=== PATIENT | female | born 1980 | race Caucasian/White ===

== ENCOUNTER → 2019-02-08 | Outpatient (CLI) | payer BC ==
--- NOTE | 2019-02-08 14:05 | MM ---
Reason for exam: screening (asymptomatic). History: Taking hormonal contraceptives for 4 years. Physical Findings: Nurse did not find any significant physical abnormalities on exam. MG 3D Screening Mammo W/Cad Bilateral CC and MLO view(s) were taken. The breast tissue is heterogeneously dense. This may lower the sensitivity of mammography. There is no discrete abnormality. These results were verbally communicated with the patient and result sheet given to the patient on 02/08/19. ASSESSMENT: Negative, BI-RAD 1 RECOMMENDATION: Routine screening mammogram of both breasts in 1 year.
== END ==
LOC: RADMAMWWP 12:46
PROVIDERS: ATTEND Family Medicine
DX: Z12.31 Encounter for screening mammogram for malignant neoplasm of breast (principal)
CPT/HCPCS: 77063; 77067

== ENCOUNTER → 2020-05-28 | Outpatient (CLI) | payer BC ==
--- NOTE | 2020-05-28 10:13 | CT ---
EXAMINATION TYPE: CT sinus wo con DATE OF EXAM: 05/28/2020 COMPARISON: NONE HISTORY: Chronic sinusitis per order. Nasal dryness for [address] DLP: 593.60 mGycm. Automated Exposure Control for Dose Reduction was Utilized. TECHNIQUE: CT scan of the sinuses is performed without contrast, axial images are obtained, coronal r eformatted images are also reviewed. FINDINGS: There is hypoplastic or nonformed right frontal sinus. Otherwise the paranasal sinuses incl uding the frontal, ethmoid, sphenoid, and maxillary sinuses bilaterally are well-aerated without abno rmal opacification. The ostiomeatal complex is patent bilaterally on coronal image 15. Visualized portion of mastoid air cells show no abnormal opacification. The globes are intact bilate rally. IMPRESSION: The sinuses are clear and the ostiomeatal complex is patent bilaterally.
== END | disposition home or self-care (01) ==
LOC: RADCTMAIN 08:09
PROVIDERS: ATTEND Family Medicine
DX: J32.9 Chronic sinusitis, unspecified (principal)
CPT/HCPCS: 70486

== ENCOUNTER → 2021-08-28 | Outpatient (CLI) | payer BC ==
--- NOTE | 2021-08-31 13:27 | MM ---
Reason for exam: screening (asymptomatic). Last mammogram was performed 2 years and 7 months ago. History: Taking hormonal contraceptives for 4 years. Physical Findings: A clinical breast exam by your physician is recommended on an annual basis and results should be correlated with mammographic findings. MG Screening Mammo w CAD Bilateral CC and MLO view(s) were taken. Prior study comparison: February 08, 2019, bilateral MG 3d screening mammo w/cad. The breast tissue is heterogeneously dense. This may lower the sensitivity of mammography. No significant changes when compared with prior studies. ASSESSMENT: Negative, BI-RAD 1 RECOMMENDATION: Routine screening mammogram of both breasts in 1 year.
== END | disposition home or self-care (01) ==
LOC: RADMAMWWP 10:52
PROVIDERS: ATTEND Obstetrics & Gynecology Obstetrics
DX: Z12.31 Encounter for screening mammogram for malignant neoplasm of breast (principal)
CPT/HCPCS: 77067

== ENCOUNTER → 2023-02-10 | Outpatient (CLI) | payer BC ==
--- NOTE | 2023-02-11 08:53 | MM ---
Reason for Exam: Screening (asymptomatic). Last mammogram was performed 1 year(s) and 5 month(s) ago. Patient History: Menarche at age 10. First Full-Term at age 16. Perimenopausal. Currently using Hormonal Contraceptives, for 4 years. Last menstrual period: 02/10/2023 Risk Values: Ingrid 5 year model risk: 0.6%. NCI Lifetime model risk: 7.0%. Prior Study Comparison: 02/08/2019 Bilateral Screening Mammogram, [facility]. 08/28/2021 Bilateral Screening Mammogram, [facility]. Tissue Density: The breast tissue is heterogeneously dense. This may lower the sensitivity of mammography. Findings: Analyzed By CAD. There is no suspicious group of microcalcifications or new suspicious mass in either breast. Benign calcifications noted. Overall Assessment: Benign, BI-RAD 2 Management: Screening Mammogram of both breasts in 1 year. . Patient should continue monthly self-breast exams. A clinical breast exam by your physician is recommended on an annual basis. This exam should not preclude additional follow-up of suspicious palpable abnormalities. Note on Ingrid scores and lifetime risk: 1. A Ingrid score greater than 3% is considered moderate risk. If this is the case, consider specialist referral to assess eligibility for a risk reducing agent. 2. If overall lifetime risk for the development of breast cancer is 20% or higher, the patient may qualify for future screening with alternating mammogram and breast MRI. Electronically signed and approved by: Diaz Zapata M.D. Radiologis
--- NOTE | 2023-02-11 11:33 | CA ---
Transthoracic Echo Report Name: Joanie Kidd Age: 43 Gender: F : 1980 Exam Date: 02/10/2023 14:11 Exam Location: [facility] Ht (in): 65 Wt (lb): 153 Ordering Physician: Marcella Gary DO Attending/Referring Phys: Kyra Marquez [facility] [employer] Physics Instructor Diana Horn RDCS Procedure CPT: Indications: Z12.31 Cardiac Hx: Technical Quality: Good Contrast 1: Total Dose (mL): Contrast 2: Total Dose (mL): MEASUREMENTS (Male / Female) Normal Values 2D ECHO LV Diastolic Diameter PLAX 5.1 cm 4.2 - 5.9 / 3.9 - 5.3 cm LV Systolic Diameter PLAX 2.9 cm IVS Diastolic Thickness 1.0 cm 0.6 - 1.0 / 0.6 - 0.9 cm LVPW Diastolic Thickness 0.9 cm 0.6 - 1.0 / 0.6 - 0.9 cm LV Relative Wall Thickness 0.4 RV Internal Dim ED PLAX 2.9 cm LA Systolic Diameter LX 3.3 cm 3.0 - 4.0 / 2.7 - 3.8 cm LV Diastolic Volume MOD 4C 85.5 cm??? LV Systolic Volume MOD 4C 30.3 cm??? LV Ejection Fraction MOD 4C 64.5 % LV Cardiac Index MOD 4C 2026.7 cm???/min???m??? LV Diastolic Length 4C 7.9 cm LV Systolic Length 4C 5.9 cm LV Diastolic Volume MOD 2C 73.5 cm??? LV Systolic Volume MOD 2C 32.6 cm??? LV Ejection Fraction MOD 2C 55.6 % LV Cardiac Index MOD 2C 1502.0 cm???/min???m??? LV Diastolic Length 2C 8.1 cm LV Systolic Length 2C 5.9 cm LA Volume 49.9 cm??? 18 - 58 / 22 - 52 cm??? M-MODE Aortic Root Diameter MM 2.7 cm MV E Point Septal Separation 0.5 cm AV Cusp Separation MM 2.0 cm DOPPLER AV Peak Velocity 149.1 cm/s AV Peak Gradient 8.9 mmHg MV Area PHT 3.3 cm??? Mitral E Point Velocity 122.5 cm/s Mitral A Point Velocity 76.6 cm/s Mitral E to A Ratio 1.6 MV Deceleration Time 228.9 ms TR Peak Velocity 219.4 cm/s TR Peak Gradient 19.3 mmHg Right Ventricular Systolic Press 23.5 mmHg FINDINGS Left Ventricle Left ventricular ejection fraction is estimated at 55-60 %. Left ventricular cavity size normal. Left ventricular wall thickness normal. Right Ventricle Normal right ventricular size and function. Right ventricular systolic pressure within normal limits. Right Atrium Normal right atrial size. Left Atrium Normal left atrial size. Mitral Valve Structurally normal mitral valve. Mitral valve thickened. No mitral stenosis, regurgitation or prolapse. Aortic Valve Trileaflet aortic valve. No aortic valve stenosis or regurgitation. Tricuspid Valve Structurally normal tricuspid valve. Trace to mild tricuspid regurgitation. Pulmonic Valve Structurally normal pulmonic valve. No pulmonic regurgitation. Pericardium No pericardial effusion. Aorta Normal size aortic root and proximal ascending aorta. CONCLUSIONS Left ventricular ejection fraction 55-60% Trace to mild tricuspid regurgitation No pericardial effusion Previewed by: Dr. Joe Zapata DO (Electronically Signed) Final Date: 11 February 2023 11:32
== END | disposition home or self-care (01) ==
LOC: RADMAMWWP 13:43
PROVIDERS: ATTEND Family Medicine
DX: Z12.31 Encounter for screening mammogram for malignant neoplasm of breast (principal); I07.1 Rheumatic tricuspid insufficiency; R00.2 Palpitations
CPT/HCPCS: 77067; 93306

== ENCOUNTER 2024-01-09 11:00 | Inpatient (IN) | payer BC ==
[~2024-01-09 11:00] MED LIST: KETOROLAC 15 MG/ML 1 ML VIAL ONE; ONDANSETRON 4 MG/2 ML VIAL ONE
[2024-01-09] MEDS ORDERED: AMPICILLIN-SULBACTAM 3 GM VIAL ONE (12:31)
[2024-01-09] MEDS ORDERED: ACETAMINOPHEN TAB 500 MG TAB ONE (20:29)
[2024-01-10] MEDS ORDERED: SODIUM CHLORIDE 0.9% 100 ML BAG IV ONE (00:01)
[2024-01-10] MEDS ORDERED: SODIUM CHLORIDE 0.9% 1,000 ML BAG ONE ×2 (00:01→17:00)
[2024-01-10] MEDS ORDERED: AMPICILLIN-SULBACTAM 3 GM VIAL ONE ×2 (02:40→08:06)
[2024-01-10] MEDS ORDERED: LORazepam 2 MG/ML INJ ONE ×2 (03:58→21:45)
[2024-01-10] MEDS ORDERED: ACETAMINOPHEN TAB 500 MG TAB ONE ×3 (09:30→21:45)
[2024-01-10] MEDS ORDERED: LIDOCAINE 2%-EPI 1:100,000 20 ML VIAL ONE (17:00)
[2024-01-10] MEDS ORDERED: DEXAMETHASONE SOD PHOSPHATE 4 MG/ML 1 ML VIAL ONE (17:00)
[2024-01-10] MEDS ORDERED: HEPARIN SODIUM,PORCINE 5,000 UNIT/ML 1 ML VIAL ONE (17:00)
[2024-01-10] MEDS ORDERED: LACTATED RINGERS 1,000 ML BAG ONE (17:00)
[2024-01-10] MEDS ORDERED: METOCLOPRAMIDE 5 MG/ML 2 ML VIAL ONE (17:00)
[2024-01-10] MEDS ORDERED: ONDANSETRON 4 MG/2 ML VIAL ONE (17:00)
[2024-01-10] MEDS ORDERED: HYDROmorphone 0.5 MG/0.5 ML SYRINGE ONE (17:00)
[2024-01-10] MEDS ORDERED: KETAMINE HCL IN 0.9 % NACL 50 MG/5 ML SYRINGE ONE (17:09)
[2024-01-10] MEDS ORDERED: MIDAZOLAM 2 MG/2 ML VIAL ONE (17:09)
[2024-01-10] MEDS ORDERED: GLYCOPYRROLATE 0.2 MG/ML 2 ML VIAL ONE (17:09)
[2024-01-10] MEDS ORDERED: LIDOCAINE 1% INJ 10MG/ML (20 ML MDV) ONE (17:09)
[2024-01-10] MEDS ORDERED: SUCCINYLCHOLINE CHLORIDE 200 MG/10 ML VIAL IV ONE (17:09)
[2024-01-10] MEDS ORDERED: ROCURONIUM 10 MG/ML (5 ML VIAL) IV ONE (17:09)
[2024-01-10] MEDS ORDERED: fentaNYL (PF) 50 MCG/ML 2 ML AMP ONE (17:09)
[2024-01-10] MEDS ORDERED: PROPOFOL 10 MG/ML 20 ML VIAL IV ONE (17:09)
[2024-01-10] MEDS ORDERED: ceFAZolin 1 GM/50 ML BAG (PMX) ONE (17:09)
[2024-01-10] MEDS ORDERED: KETOROLAC 15 MG/ML 1 ML VIAL ONE (17:09)
[2024-01-10] MEDS ORDERED: NEOSTIGMINE 1 MG/ML 10 ML VIAL ONE (17:09)
[2024-01-11] MEDS ORDERED: SODIUM CHLORIDE 0.9% 100 ML BAG IV ONE (00:01)
[2024-01-11] MEDS ORDERED: DEXTROSE 5%-0.45% NACL 1,000 ML BAG IV ONE (00:01)
[2024-01-11] MEDS ORDERED: AMPICILLIN-SULBACTAM 3 GM VIAL ONE (04:30)
[2024-01-11] MEDS ORDERED: KETOROLAC 15 MG/ML 1 ML VIAL ONE ×2 (04:30→11:40)
[2024-01-11] MEDS ORDERED: PANTOPRAZOLE 40 MG/10 ML VIAL ONE (07:40)
--- NOTE | 2024-02-07 18:39 | US ---
EXAMINATION TYPE: US abdomen APPY DATE OF EXAM: 01/09/2024 COMPARISON: NONE CLINICAL INDICATION: Unknown, old with history of ; TECHNIQUE: Multiple sonographic images of the right upper quadrant are obtained. FINDINGS: EXAM MEASUREMENTS: Liver Length: 16.2cm Gallbladder Wall: .2 cm CBD: .71 cm cm Right Kidney: 11.73 cm cm BINDERY LEADPERSON NOTES: Panc- wnl Liver- wnl CBD- Dilated GB- Distended at 12.2 cm with mobile gallstones Positive Anderson's IMPRESSION: Cholelithiasis with gallbladder hydrops. No evidence for wall thickening or pericholecystic fluid. Th e common bile duct is dilated. Correlate for acute cholecystitis.
--- NOTE | 2024-02-17 15:13 | OP ---
OPERATIVE REPORT DATE OF SERVICE : 01/10/2024 PROCEDURE: Laparoscopic cholecystectomy. PREOPERATIVE DIAGNOSIS: Acute cholecystitis. POSTOPERATIVE DIAGNOSIS: Acute cholecystitis. MANAGER ENTERPRISE: None. ANESTHESIA: General endotracheal tube anesthesia. PROCEDURE IN DETAIL: The patient was placed on the OR table in the supine position. She received general endotracheal tube anesthesia. Her abdomen was prepped and draped in usual sterile fashion. The skin incision sites were anesthetized with 1% local Xylocaine. Using 11 blade, the skin was incised in the supraumbilical position. Using a Enoc clamp, the fascia was grasped and a Veress needle was positioned into the peritoneal cavity. Position of the Veress needle was confirmed with a positive drop test. After adequate insufflation, a 5 mm trocar was placed into the peritoneal cavity. The laparoscope was placed in the peritoneal cavity. The patient was placed in reverse Trendelenburg right- side-up position. Trocars were placed at the epigastric, right lateral and right mid abdomen position. The gallbladder was grasped at the fundus and the infundibulum. This opened the Tetralogy of Fallot. The cystic duct was seen. This was bluntly dissected. The union between the cystic duct, common hepatic and common bile duct were seen. A critical view of safety was initiated. The cystic duct was then ligated with a 2-0 Ethibond suture. Using Harmonic scissors, the cystic duct was divided. The cystic artery was divided. The liver was from the gallbladder using the Harmonic scissors. The gallbladder was extracted through the epigastric port site. There was a stone impacted in neck of the gallbladder. Specimen was sent to Pathology. The abdomen was irrigated. There was no bleeding seen. The skin was closed with interrupted 3-0 Monocryl suture. Dermabond was applied. The patient tolerated the procedure well. She was sent to recovery room in stable condition. MMODL / IJN: [id number] /
== END 2024-01-11 13:53 | disposition home or self-care (01) | DRG 418 ==
LOC: 4SSUR 11:00
PROVIDERS: ADMIT Hospitalist; ATTEND Hospitalist
PROC: 0FT44ZZ Resection of Gallbladder, Percutaneous Endoscopic Approach (ICD-10-PCS; principal; 2024-01-10 11:20)
DX: K80.42 Calculus of bile duct with acute cholecystitis without obstruction (principal); F11.20 Opioid dependence, uncomplicated; F17.200 Nicotine dependence, unspecified, uncomplicated
CPT/HCPCS: 76705; 88304; 96361; 96374; 96375; 99285

== ENCOUNTER → 2024-09-14 | Outpatient (CLI) | payer BC ==
--- NOTE | 2024-09-14 15:12 | XR ---
EXAMINATION TYPE: XR ribs RT w pa chest xray DATE OF EXAM: 09/14/2024 3:06 PM COMPARISON: None. CLINICAL INDICATION: Female, 44 years old with history of R0781 PLEURODYNIA, pain TECHNIQUE: 2 view(s) right ribs obtained. Exam is supplemented with a frontal chest FINDINGS: No acute displaced rib fractures are identified. No pneumothorax is evident. Heart size is normal. Pulmonary vasculature is normal. No suspicious infiltrates evident. IMPRESSION: 1. No acute right rib fractures [facility], Workstation: [facility], 09/14/2024 3:09 PM
== END | disposition home or self-care (01) ==
LOC: RADXRYALE 14:53
PROVIDERS: ATTEND Nurse Practitioner
DX: R07.81 Pleurodynia (principal)

== ENCOUNTER → 2024-09-27 | Outpatient (CLI) | payer BC ==
--- NOTE | 2024-09-28 08:06 | MM ---
Reason for Exam: Screening (asymptomatic). Last mammogram was performed 1 year(s) and 8 month(s) ago. Patient History: Menarche at age 10. First Full-Term at age 16. Perimenopausal. Patient used Hormonal Contraceptives for 4 years. Risk Values: Ingrid 5 year model risk: 0.6%. NCI Lifetime model risk: 6.9%. Prior Study Comparison: 02/08/2019 Bilateral Screening Mammogram, [facility]. 08/28/2021 Bilateral Screening Mammogram, [facility]. 02/10/2023 Bilateral MG screening mammo w CAD, [facility]. Tissue Density: The breasts are heterogeneously dense, which may obscure small masses. Findings: Analyzed By CAD. Right breast: There is no suspicious group of microcalcifications or new suspicious mass. Left breast: There is no suspicious group of microcalcifications or new suspicious mass. Overall Assessment: Negative, BI-RAD 1 Management: Screening Mammogram of both breasts in [address] [facility] will attempt to contact patient to return for supplemental views and ultrasound if indicated. Patient should continue monthly self-breast exams. A clinical breast exam by your physician is recommended on an annual basis. This exam should not preclude additional follow-up of suspicious palpable abnormalities. Note on Ingrid scores and lifetime risk: 1. A Ingrid score greater than 3% is considered moderate risk. If this is the case, consider specialist referral to assess eligibility for a risk reducing agent. 2. If overall lifetime risk for the development of breast cancer is 20% or higher, the patient may qualify for future screening with alternating mammogram and breast MRI. [facility], , 09/28/2024 8:04 AM. Electronically signed and approved by: Jose A Burdick DO
== END | disposition home or self-care (01) ==
LOC: RADMAMWWP 16:00
PROVIDERS: ATTEND Family Medicine
DX: Z12.31 Encounter for screening mammogram for malignant neoplasm of breast (principal); R92.333 Mammographic heterogeneous density, bilateral breasts; Z92.0 Personal history of contraception
CPT/HCPCS: 77063; 77067

== ENCOUNTER → 2024-10-02 | Outpatient (CLI) | payer BC ==
--- NOTE | 2024-10-02 08:07 | US ---
EXAMINATION TYPE: US abdomen complete DATE OF EXAM: 10/02/2024 COMPARISON: US 01/08/25 CLINICAL INDICATION: Female, 44 years old with history of R10.11 RUQ PAIN; subcostal pain, back pain. Cholecystectomy last December. TECHNIQUE: Grayscale and color Doppler imaging of the abdomen was performed. FINDINGS: EXAM MEASUREMENTS: Liver Length: 15.3 cm Gallbladder Wall: Surgically absent CBD: 0.9 cm, color Doppler imaging was utilized to isolate the common bile duct for measurement. Spleen: 9.9 cm Right Kidney: 10.7x3.8x6.0 cm Left Kidney: 11.0x5.3x4.9 cm ZIGZAG ELASTIC ATTACHER NOTES: Pancreas: Tail obscured by overlying bowel gas Liver: measures at upper limits, echogenic Gallbladder: Surgically absent Evidence for sonographic Anderson's sign: No CBD: dilated Spleen: echogenic Right Kidney: wnl, No hydronephrosis, calculi or masses seen, extrarenal pelvic vs slightly dilated proximal ureter Left Kidney: wnl, No hydronephrosis, calculi or masses seen Upper IVC: wnl Abd Aorta: wnl There is a 0.9x1.1x0.5cm shadowing echogenic focus, possibly at site of recent cholecystectomy. Does not appear to be in CBD. The liver is homogenous. The intrahepatic portion of the IVC and proximal abdominal aorta are within normal limits. Common bile duct is unremarkable. The visualized portions of the pancreas are homog enous. The spleen is unremarkable. Kidneys are symmetric and free of hydronephrosis. No renal lesi ons are seen. IMPRESSION: 1. Surgically absent gallbladder with changes with surgical clips identified by fur feeder. No orga nizing fluid collection. There remains dilation of the common duct which can be seen in setting of postcholecystectomy physiol ogy. [facility], , 10/02/2024 8:04 AM
== END | disposition home or self-care (01) ==
LOC: RADUSWWP 06:49
PROVIDERS: ATTEND Family Medicine
DX: R10.11 Right upper quadrant pain (principal); Z90.49 Acquired absence of other specified parts of digestive tract
CPT/HCPCS: 76700

== ENCOUNTER → 2024-10-05 | Outpatient (CLI) | payer BC ==
--- NOTE | 2024-10-05 13:37 | CT ---
EXAMINATION TYPE: CT abdomen wo con DATE OF EXAM: 10/05/2024 12:39 PM COMPARISON: Correlation ultrasound 10/02/2024 CLINICAL INDICATION: Female, 44 years old with history of R10.11 RUQ pain; RUQ abdominal pain TECHNIQUE: CT of the abdomen without IV contrast. Coronal and sagittal reconstructions performed. Ora l contrast used: with Oral Contrast (none if empty) CT DLP: 331 mGycm, Automated exposure control for dose reduction was used. FINDINGS: LOWER CHEST: Unremarkable ABDOMEN LIVER: Unremarkable GALLBLADDER AND BILE DUCTS: Gallbladder appears surgically absent. There are a couple punctate 3 mm h igh-density foci at the gallbladder fossa either tiny stones in the cystic duct remnant versus surgic al material. Bile duct is mildly dilated at 1.0 cm though no internal filling defect is identified by CT. PANCREAS: Unremarkable. SPLEEN: Unremarkable. ADRENAL GLANDS: Unremarkable. KIDNEYS AND URETERS: Mild right-sided pelvocaliectasis may be transient. No stone is identified. PELVIS Not imaged. ADDITIONAL ABDOMEN STOMACH AND BOWEL: No evidence of bowel obstruction. Scattered moderate stool. No pericolonic inflamm atory change. Portion of a normal appendix noted. PERITONEUM/RETROPERITONEUM: No evidence of pneumoperitoneum or free fluid. VASCULATURE: No evidence of aortic aneurysm. MUSCULOSKELETAL: No acute osseous abnormalities LYMPH NODES: No gross evidence for lymphadenopathy. SOFT TISSUE/ABDOMINAL WALL: Unremarkable IMPRESSION: 1. The gallbladder appears surgically absent. There are a couple punctate high density foci measurin g up to 3 mm the gallbladder fossa, either tiny stones in the cystic duct remnant versus surgical mat erial. 2. The bile duct is dilated at 1.0 cm. Possibly related to chronic postcholecystectomy status. Correl ate with alkaline phosphatase and bilirubin levels to exclude a biliary obstruction. No filling defec t identified by CT. 3. Mild right-sided pelvicaliectasis. This may be transient. Recommend short interval follow-up renal ultrasound to exclude early developing hydronephrosis and correlate for any renal colic symptoms. [facility], , 10/05/2024 1:35 PM
== END | disposition home or self-care (01) ==
LOC: RADCTMAIN 10:21
PROVIDERS: ATTEND Family Medicine
DX: R93.5 Abnormal findings on diagnostic imaging of other abdominal regions, including retroperitoneum (principal); Z90.49 Acquired absence of other specified parts of digestive tract
CPT/HCPCS: 74150